=== PATIENT | female | born 1935 | race Caucasian/White ===

== ENCOUNTER 2019-08-01 11:08 | Emergency (ER) | payer MEDICARE, OTHER ==
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
[2019-08-01 15:22] VITALS: BP 148/78; PULSE 106
[2019-08-01] MEDS: Sodium Chloride 0.9% 1,000 ML IV SCH (16:32)
[2019-08-01] MEDS: cefTRIAXone 1 GM Vial IVPUSH ONE (16:32)
== END 2019-08-01 16:45 ==
LOC: CC.ED 11:08
DX: N28.9 Disorder of kidney and ureter, unspecified (principal); N39.0 Urinary tract infection, site not specified; E78.00 Pure hypercholesterolemia, unspecified; I10 Essential (primary) hypertension; K21.9 Gastro-esophageal reflux disease without esophagitis; E11.21 Type 2 diabetes mellitus with diabetic nephropathy; Z88.8 Allergy status to other drugs, medicaments and biological substances; Z79.82 Long term (current) use of aspirin; Z79.4 Long term (current) use of insulin; Z79.899 Other long term (current) drug therapy
CPT/HCPCS: 36415; 80053; 81001; 83605; 85025; 87040; 87086; 87088; 87186; 96374; 99284; 99284-25; J0696; J7030